=== PATIENT | male | born 1980 | race Caucasian/White ===

== ENCOUNTER → 2023-12-11 08:41 | Outpatient (BNVA) | payer BC, SELFPAY | PROVIDERS: Family Provider Nurse Practitioner Family; PCP Nurse Practitioner Family; Visit Provider Nurse Practitioner Family | DX: E11.9 Type 2 diabetes mellitus without complications (principal) | CPT/HCPCS: 80053; 83036; 85025 ==

== ENCOUNTER 2024-08-30 15:25 | Outpatient (CLI) | payer BC, SELFPAY ==
[2024-08-30 17:00] LABS: C.Diff PCR (Lab) NEGATIVE (Negative)
== END 2024-08-30 15:26 | disposition home or self-care (01) ==
LOC: LAB 15:26
PROVIDERS: Family Provider Nurse Practitioner Family; PCP Nurse Practitioner Family; Visit Provider Nurse Practitioner Family
DX: R19.7 Diarrhea, unspecified (principal)
CPT/HCPCS: 81000; 87045; 87427; 87449; 87493